=== PATIENT | female | born 1955 | race African-American/Black ===

== ENCOUNTER 2017-11-24 21:36 | Inpatient (IN) ==
[2017-11-24] MEDS ORDERED: Sod Chloride 0.9% Inj 1,000 ML IV.SIG SCH (22:45)
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
[2017-11-24 23:52] LABS: Baso % (Auto) 0.4 % (0.0-2.0); Eos # (Auto) 0.1 th/mm3 (0.0-0.4); Eos % (Auto) 0.9 % (0.0-4.0); Hematocrit 44.3 % (35.0-46.0); Hemoglobin 14.3 gm/dL (11.6-15.3); Lymph % (Auto) 26.2 % (9.0-44.0); Mean Corpuscular HGB Conc 32.3 % (32.0-36.0); Mean Corpuscular Hemoglobin 30.5 pg (27.0-34.0); Mean Corpuscular Volume 94.3 fL (80.0-100.0); Mean Platelet Volume 8.1 fL (7.0-11.0); Mono # (Auto) 0.3 th/mm3 (0.0-0.9); Mono % (Auto) 3.9 % (0.0-8.0); Neut # (Auto) 5.4 th/mm3 (1.8-7.7); Neut % (Auto) 68.6 % (16.0-70.0); Platelet Count 306 th/mm3 (150-450); Red Blood Count 4.69 mil/mm3 (4.00-5.30); Red Cell Distribution Width 14.1 % (11.6-17.2); White Blood Count 7.8 th/mm3 (4.0-11.0)
[2017-11-25 00:14] LABS: Bacteria,Urine Rare /hpf; Bilirubin,Urine Negative (Negative); Clarity,Urine Hazy (Clear); Color,Urine Straw (Yellw/Straw); Glucose,Urine (UA) 500 or Greater mg/dL (Negative); Leukocyte Esterase,Urine Large (Negative); Nitrite,Urine Negative (Negative); Specific Gravity,Urine 1.029 (1.002-1.035); Squamous Epithelial Cell,Urine 1 /hpf (0-5)
[2017-11-25 00:16] LABS: Amphetamine Screen,Urine Neg (Neg); Barbiturate Screen,Urine Neg (Neg); Cannabinoid Screen,Urine Neg (Neg); Cocaine Screen,Urine Neg (Neg)
[2017-11-25 00:24] LABS: Alanine Aminotransferase 18 U/L (10-53); Albumin 3.9 g/dL (3.4-5.0); Anion Gap 9 meq/L (5-15); Aspartate Aminotransferase 14 U/L (15-37); Blood Urea Nitrogen 29 mg/dL (7-18); Calcium 9.7 mg/dL (8.5-10.1); Carbon Dioxide 27.4 meq/L (21.0-32.0); Chloride 98 meq/L (98-107); Glomerular Filtration Rate 57 mL/min (>89); Sodium 134 meq/L (136-145)
[2017-11-25 00:26] LABS: Opiate Screen,Urine Neg (Neg)
[2017-11-25 00:26] LABS: Glucose,Random 466 mg/dL (74-106)
[2017-11-25 00:29] LABS: Alkaline Phosphatase 108 U/L (45-117); Total Protein 8.3 g/dL (6.4-8.2)
[2017-11-25] MEDS ORDERED: Lisinopril 10 MG Tablet PO ONE (13:27)
[2017-11-25] MEDS ORDERED: Aluminum/Magnesium/Simethacone Susp 30 ML UDC PO PRN (14:23)
[2017-11-25] MEDS ORDERED: Acetaminophen 325 MG Tablet PO PRN (14:23)
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
[2017-11-25] MEDS: Non-Formulary Drug (Metformin [Metformin] 1,000 MG) PO SCH (21:26)
[2017-11-25] MEDS: NOVOLOG U INSULIN SUBCUT SCH (22:15)
[2017-11-26 08:30] LABS: Anion Gap 8 meq/L (5-15); Blood Urea Nitrogen 27 mg/dL (7-18); Calcium 9.5 mg/dL (8.5-10.1); Chloride 107 meq/L (98-107); Chol/HDL Ratio 3.31 Ratio; Cholesterol 146 mg/dL (120-200); Glomerular Filtration Rate Greater Than 89 mL/min (>89); Glucose,Random 68 mg/dL (74-106); LDL Cholesterol,Calculated 86 mg/dL (0-99); Potassium 3.6 meq/L (3.5-5.1); Sodium 143 meq/L (136-145); Triglycerides 78 mg/dL (42-150)
[2017-11-26] MEDS: Lisinopril 10 MG Tablet PO SCH (08:44)
[2017-11-26] MEDS ORDERED: INSULIN DETEMIR SQ SCH (09:00)
[2017-11-26] MEDS ORDERED: [UNRECOGNIZED DRUG - OTHER] SQ SCH (09:00)
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
--- NOTE | 2017-11-26 11:05 | P.CONPSY ---
Provisional Diagnosis Admission Date: November 25, 2017 14:23 [place] I.: Adjustment disorder with mixed disturbances of emotion and conduct History of Present Illness Service: Psychiatry Primary Care Provider: UNKNOWN History of Present Illness: Patient is a 62-year-old Afro-E[place]ian woman, psychiatric history of dementia, who comes to the emergency department under a Johns act by the [facility]'s office dated 11/24/2017 at 09 100 p.m. that document reviewed essentially stating subject was not a physical with family members subject vitals were checked by medical personnel determined the subject he has high blood sugar subject has been diagnosed with blood sugar issues and he has been prescription medication which she has not taken her pill count and pill bottles per medical personnel having high blood sugar which causes subjects mental status to be altered subject refused to go the hospital for treatment. Consulted to me for second opinion. My evaluation the patient is calm, cooperative, pleasant. She reports feeling much better. The patient reports that she does not really know what is the reason she is here. The patient reports good mood, denies depression, denies suicidal enemas ideation, she denies visual and auditory hallucinations. She is oriented 3 at the moment. [facility] - History History Provided By: Patient, Medical Record, Law Enforcement - Medical History Medical History: Medical History (Last Reviewed 11/25/17 @ 17:09 by PHILLIP Hernández) Diabetes Hypertension - Tobacco History Second Hand Smoke Exposure: No Smoking Status: Never smoker - Alcohol History How Often Do You Have a Drink Containing Alcohol: Never - Substance Use History Substance History: No History of Abuse - Travel History Recent Travel in the [place] Within the Last 8 Weeks: No Recent Travel Out of the Country Within the Last 8 Weeks: No - Immunization History Tetanus Immunization: Unsure Hx Influenza Vaccine This Season: No Medications and Allergies Active Medications: Active Medications Acetaminophen (Tylenol) 650 mg PO Q4H PRN PRN Reason: Pain 1-5 or Temp >101F Al Hydrox/Mg Hydrox/Simethicone (Mag-Al Plus Susp Liq) 30 ml PO Q6H PRN PRN Reason: DYSPEPSIA Al Hydroxide/Mg Hydroxide (Milk Of Magnesia Liq) 30 ml PO Q12H PRN PRN Reason: Mild Constipation Sodium Chloride (Ns Inj) 1,000 mls @ 0 mls/hr IV.SIG BOLUS [facility] Last Infusion: 11/25/17 01:25 Dose: Infused Lisinopril (Prinivil) 10 mg PO DAILY [facility] Last Admin: 11/26/17 08:44 Dose: 10 mg Non-Formulary Medication (Levemir Flextouch U-100 Insuln) 20 unit SQ DAILY [facility] Non-Formulary Medication (Metformin [Metformin]) 1,000 mg PO BID [facility] Last Admin: 11/25/17 21:26 Dose: Not Given Non-Formulary Medication (Novolog Flexpen U-100 Insulin) 10 sc SUBCUT BID [facility] Last Admin: 11/25/17 22:15 Dose: Not Given Pravastatin Sodium (Pravachol) 40 mg PO [facility] Last Admin: 11/25/17 21:26 Dose: 40 mg Allergies Allergy/AdvReac Type Severity Reaction Status Date / Time No Known Allergies Allergy Verified 11/24/17 22:05 Home Medications Medication Instructions Recorded Confirmed Type Levemir FlexTouch U-100 Insuln 20 unit SUB-Q DAILY 11/24/17 11/24/17 History Novolog Flexpen U-100 Insulin 10 sc BID 11/24/17 11/24/17 History lisinopril 10 mg PO DAILY 11/24/17 11/24/17 History metformin 1,000 mg PO BID 11/24/17 11/24/17 History pravastatin 40 mg PO HS 11/24/17 11/24/17 History Exam Vital signs: Vital Signs 11/25/17 13:00 11/25/17 15:22 11/25/17 17:06 Temperature 98.3 F Pulse Rate 71 71 75 Respiratory Rate 17 16 Blood Pressure 197/90 H 184/88 H 146/71 H Pulse Oximetry 97 93 L 11/26/17 05:45 Temperature 98 F Pulse Rate 64 Respiratory Rate 16 Blood Pressure 122/60 Pulse Oximetry 94 L Intake & Output 11/25/17 11/26/17 11/26/17 18:59 06:59 18:59 Intake Total 0 / 0 Balance 0 / 0 Weight 67 kg Intake: Oral 0 / 0 Other: # Voids 1 Weight On Admission 67 kg Mental Status Examination Appearance: Appropriate, Well dressed/well groomed Consciousness: Alert Orientation: Person, Place, Situation Motor Activity: Normal gait Speech: Unremarkable Language: Adequate Fund of Knowledge: Adequate (Fair) Attention and Concentration: Adequate Memory: Impaired Mood: Appropriate, Anxious Affect: Other (Good range and intensity) Thought Process & Associations: Intact Thought Content: Appropriate Hallucination Type: None Delusion Type: None Suicidal Ideation: No Suicidal Plan: No Suicidal Intention: No Homicidal Ideation: No Homicidal Plan: No Homicidal Intention: No Insight: Fair Judgment: Impulsive Assessment and Plan - Assessment (1) Adjustment disorder with mixed disturbance of emotions and conduct Code(s): F43.25 - Adjustment disorder with mixed disturbance of emotions and conduct Status: Acute (2) Dementia with behavioral disturbance Code(s): F03.91 - Unspecified dementia with behavioral disturbance Status: Acute - Plan Plan: I have seen and examined this patient, reviewed documentation, I agree and concur with Dr. Bautista's assessment and plan. Justification for Continued Inpatient Stay: Continue admission Request Healthcare Surrogate/Guardian Advocate?: No
[2017-11-26] MEDS: NOVOLOG U INSULIN SUBCUT SCH (15:09)
[2017-11-26] MEDS: Non-Formulary Drug (Metformin [Metformin] 1,000 MG) PO SCH (15:09)
[2017-11-26 15:54] LABS: Hemoglobin A1c 11.6 % (4.3-6.0)
[2017-11-26] MEDS ORDERED: Dextrose 50% in Water 50 ML Vial IV.PUSH PRN (20:38)
[2017-11-26] MEDS: Insulin NovoLOG Aspart Correctional Sugar Inj SQ SCH (22:11)
[2017-11-27] MEDS: Insulin NovoLOG Aspart Correctional Sugar Inj SQ SCH ×3 (09:01→16:40)
[2017-11-27] MEDS: Lisinopril 10 MG Tablet PO SCH (09:02)
[2017-11-27] MEDS: Insulin Detemir Inj 1,000 UNIT/10 ML Vial SQ SCH (09:02)
--- NOTE | 2017-11-27 11:57 | P.PNPSY ---
Subjective Remarks: Patient seen in day room with nurse Pace, chart reviewed, patient compliant medications. Patient continues calm pleasant with me continues well oriented denying suicidality homicidality voices or visions. There is still some her depression and sadness with her when referring to the relationship with her son and [id number] and they are living together. There are still some concern about the entire situation. For now continue treatment we are awaiting neuropsychology report Review of Systems All other systems reviewed negative except as stated in HPI Mental Status Examination Appearance: Appropriate, Well dressed/well groomed Consciousness: Alert Orientation: Person, Place, Situation Motor Activity: Normal gait Speech: Unremarkable Language: Adequate Fund of Knowledge: Adequate (Fair) Attention and Concentration: Adequate Memory: Impaired Mood: Appropriate, Anxious Affect: Other (Good range and intensity) Thought Process & Associations: Intact Thought Content: Appropriate Hallucination Type: None Delusion Type: None Suicidal Ideation: No Suicidal Plan: No Suicidal Intention: No Homicidal Ideation: No Homicidal Plan: No Homicidal Intention: No Insight: Fair Judgment: Impulsive Assessment and Plan - Assessment (1) Adjustment disorder with mixed disturbance of emotions and conduct Code(s): F43.25 - Adjustment disorder with mixed disturbance of emotions and conduct Status: Acute (2) Dementia with behavioral disturbance Code(s): F03.91 - Unspecified dementia with behavioral disturbance Status: Acute - Plan Plan: Patient continues somewhat depressed, somewhat functioning relationship with her children. For now continue treatment Justification for Continued Inpatient Stay: At this time patient would decompensate a place to a lower level of care Discharge Planning: To be determined Request Healthcare Surrogate/Guardian Advocate?: No
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
[2017-11-27] MEDS ORDERED: Insulin Detemir Inj 1,000 UNIT/10 ML Vial SQ SCH (21:00)
[2017-11-28] MEDS: Insulin NovoLOG Aspart Correctional Sugar Inj SQ SCH ×5 (04:08→21:00)
[2017-11-28] MEDS: Lisinopril 10 MG Tablet PO SCH (08:01)
[2017-11-28] MEDS: Insulin Detemir Inj 1,000 UNIT/10 ML Vial SQ SCH (08:02)
[2017-11-28] MEDS ORDERED: Insulin Detemir Inj 1,000 UNIT/10 ML Vial SQ SCH (11:58)
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
--- NOTE | 2017-11-28 16:26 | P.PNPSY ---
Subjective Remarks: Patient was seen and case discussed with nursing. Patient is perseverative on discharge. She does not poor insight into her admission. So far, she is behaving well on the unit and has not had any outbursts. No aggressive behavior noted. She denies suicidal or homicidal ideation intent or plan Mental Status Examination Appearance: Appropriate, Well dressed/well groomed Consciousness: Alert Orientation: Person, Place, Situation Motor Activity: Normal gait Speech: Unremarkable Language: Adequate Fund of Knowledge: Adequate (Fair) Attention and Concentration: Adequate Memory: Impaired Mood: Appropriate, Anxious Affect: Other (Good range and intensity) Thought Process & Associations: Intact Thought Content: Appropriate Hallucination Type: None Delusion Type: None Suicidal Ideation: No Suicidal Plan: No Suicidal Intention: No Homicidal Ideation: No Homicidal Plan: No Homicidal Intention: No Insight: Fair Judgment: Impulsive Assessment and Plan - Assessment (1) Adjustment disorder with mixed disturbance of emotions and conduct Code(s): F43.25 - Adjustment disorder with mixed disturbance of emotions and conduct Status: Acute (2) Dementia with behavioral disturbance Code(s): F03.91 - Unspecified dementia with behavioral disturbance Status: Acute - Plan Plan: Continue current treatment plan Justification for Continued Inpatient Stay: Patient would decompensate in a less restrictive setting Request Healthcare Surrogate/Guardian Advocate?: No
[2017-11-29] MEDS: Insulin NovoLOG Aspart Correctional Sugar Inj SQ SCH ×4 (09:56→21:00)
[2017-11-29] MEDS: Insulin Detemir Inj 1,000 UNIT/10 ML Vial SQ SCH ×2 (10:02→21:50)
[2017-11-29] MEDS: Lisinopril 10 MG Tablet PO SCH (10:03)
--- NOTE | 2017-11-29 12:49 | P.PNPSY ---
Subjective Remarks: Patient was seen and case discussed with nursing. Today, patient is minimally engaged during the interview. Nonspontaneous speech. Patient says she wants to leave. Her blood sugar remains labile and was at 312. She is surprised to learn today she is on the psych olivares. Has not had any visitors or phone calls today. Compliant with medication per nursing Mental Status Examination Appearance: Appropriate, Well dressed/well groomed Consciousness: Alert Orientation: Person, Place, Situation Motor Activity: Normal gait Speech: Unremarkable Language: Adequate Fund of Knowledge: Adequate (Fair) Attention and Concentration: Adequate Memory: Impaired Mood: Appropriate, Anxious Affect: Other (Good range and intensity) Thought Process & Associations: Intact Thought Content: Preoccupations Hallucination Type: None Delusion Type: None Suicidal Ideation: No Suicidal Plan: No Suicidal Intention: No Homicidal Ideation: No Homicidal Plan: No Homicidal Intention: No Insight: Fair Judgment: Impulsive Assessment and Plan - Assessment (1) Adjustment disorder with mixed disturbance of emotions and conduct Code(s): F43.25 - Adjustment disorder with mixed disturbance of emotions and conduct Status: Acute (2) Dementia with behavioral disturbance Code(s): F03.91 - Unspecified dementia with behavioral disturbance Status: Acute - Plan Plan: Continue current treatment plan Justification for Continued Inpatient Stay: Patient would decompensate in a less restrictive setting Request Healthcare Surrogate/Guardian Advocate?: No
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
[2017-11-30] MEDS: Insulin NovoLOG Aspart Correctional Sugar Inj SQ SCH ×4 (07:26→22:38)
[2017-11-30] MEDS: Insulin Detemir Inj 1,000 UNIT/10 ML Vial SQ SCH ×2 (09:16→21:36)
[2017-11-30] MEDS: Lisinopril 10 MG Tablet PO SCH (09:16)
--- NOTE | 2017-11-30 10:29 | P.PNPSY ---
Subjective Remarks: Patient seen in day room with nurse Chikis, chart reviewed, patient compliant medication. Medicine service notes and management reviewed and appreciated. Patient sitting quietly and now with floor staff. She is alert continues mildly confused but no behavioral problems. For now continue treatment Review of Systems All other systems reviewed negative except as stated in HPI Mental Status Examination Appearance: Appropriate, Well dressed/well groomed Consciousness: Alert Orientation: Person, Place, Situation Motor Activity: Normal gait Speech: Unremarkable Language: Adequate Fund of Knowledge: Adequate (Fair) Attention and Concentration: Adequate Memory: Impaired Mood: Appropriate, Anxious Affect: Other (Good range and intensity) Thought Process & Associations: Intact Thought Content: Preoccupations Hallucination Type: None Delusion Type: None Suicidal Ideation: No Suicidal Plan: No Suicidal Intention: No Homicidal Ideation: No Homicidal Plan: No Homicidal Intention: No Insight: Fair Judgment: Impulsive Assessment and Plan - Assessment (1) Adjustment disorder with mixed disturbance of emotions and conduct Code(s): F43.25 - Adjustment disorder with mixed disturbance of emotions and conduct Status: Acute (2) Dementia with behavioral disturbance Code(s): F03.91 - Unspecified dementia with behavioral disturbance Status: Acute - Plan Plan: Patient calm cooperative no acute distress no behavioral issues. However she states she has had no contact with her family. In the it is upsetting her. For now continue treatment Justification for Continued Inpatient Stay: At this time patient would decompensate if placed in a lower level of care Discharge Planning: To be determined Request Healthcare Surrogate/Guardian Advocate?: No
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
--- NOTE | 2017-11-30 12:11 | P.DIET ---
Nutritional Evaluation Type of nutrition evaluation: initial [place] [facility] [place] [facility] [place] Education Subjective Subjective Comments: Pt visited in the dayroom before lunch today. Pt provided w/diet education for 1800ADA Consistent CHO diet. Objective - Diagnosis Dementia w/Behavioral Disturbances - Objective [place] body weight: 65.9 kg % IBW: 102 Body Weight Used for Calculations: Actual (67 kg) Energy Needs - Lower Range (kCal/kg): 25 Energy Needs - Upper Range (kCal/kg): 30 Lower Limit kCal/kg (kCals): 1,675 Upper Limit kCal/kg (kCals): 2,010 Lower Limit Protein Factor (Grams per Kg): 1.0 Upper Limit Protein Factor (Grams per Kg): 1.3 Lower Protein Needs (Protein): 67 Upper Protein Needs (Protein): 87 Dietitian Reviewed in Medical Record: Current diet, Curent medications, Intake & Output, Labs, Medical history Diet Order: Cardiac 1800ADA Oral Diet Intake Amount: Good 75-90% Objective Comments: PMH: DM, HTN Glucose 532, POC glucose 319, A1C 11.6 Meds Include: Novolog, Levemir, Glucophage, Pravachol, Lisinopril Assessment Assessment: Pt provided w/diet education for Cardiac 1800ADA diet and reading food labels. Pt's questions answered to her satisfaction. Pt was receptive to all education provided. Plan to follow-up for additional questions as needed. Recommendations: 1. Pt provided w/diet education for Cardiac 1800ADA diet 2. Pt's questions answered to her satisfaction 3. Pt receptive to all education provided 4. Plan to follow-up for additional questions as needed
[2017-12-01] MEDS: Insulin NovoLOG Aspart Correctional Sugar Inj SQ SCH ×3 (09:52→16:12)
[2017-12-01] MEDS: Insulin Detemir Inj 1,000 UNIT/10 ML Vial SQ SCH (09:58)
[2017-12-01] MEDS: Lisinopril 10 MG Tablet PO SCH ×2 (09:58→20:26)
--- NOTE | 2017-12-01 11:25 | P.PNPSY ---
Subjective Remarks: Patient seen in day room with nurse Chikis, patient alert somewhat confused but overall calm and pleasant. We asked her about discharge plans she initially thought about independent living. Denies suggestive perhaps a family home living type situation she had to consider that. She denies suicidality homicidality voice or visions. For now continue treatment Review of Systems All other systems reviewed negative except as stated in HPI Mental Status Examination Appearance: Appropriate, Well dressed/well groomed Consciousness: Alert Orientation: Person, Place, Situation Motor Activity: Normal gait Speech: Unremarkable Language: Adequate Fund of Knowledge: Adequate (Fair) Attention and Concentration: Adequate Memory: Impaired Mood: Appropriate, Anxious Affect: Other (Good range and intensity) Thought Process & Associations: Intact Thought Content: Preoccupations Hallucination Type: None Delusion Type: None Suicidal Ideation: No Suicidal Plan: No Suicidal Intention: No Homicidal Ideation: No Homicidal Plan: No Homicidal Intention: No Insight: Fair Judgment: Impulsive Assessment and Plan - Assessment (1) Adjustment disorder with mixed disturbance of emotions and conduct Code(s): F43.25 - Adjustment disorder with mixed disturbance of emotions and conduct Status: Acute (2) Dementia with behavioral disturbance Code(s): F03.91 - Unspecified dementia with behavioral disturbance Status: Acute - Plan Plan: Patient overall calm pleasant no behavior problems she is somewhat confused but she is quite appropriate with his responses. For now continue treatment placement may become somewhat problematic Justification for Continued Inpatient Stay: At this time patient would decompensate if not placed in an appropriate level of care Discharge Planning: To be determined Request Healthcare Surrogate/Guardian Advocate?: No
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
[2017-12-02] MEDS: Insulin NovoLOG Aspart Correctional Sugar Inj SQ SCH ×5 (00:10→22:21)
[2017-12-02] MEDS: Lisinopril 10 MG Tablet PO SCH ×2 (08:29→20:49)
[2017-12-02] MEDS: Insulin Detemir Inj 1,000 UNIT/10 ML Vial SQ SCH (08:52)
--- NOTE | 2017-12-02 12:21 | P.PNPSY ---
Subjective Remarks: Patient seen in day room with floor staff, patient calm cooperative pleasant with us as well as some mild diffuse confusion she is overall goal oriented and appropriate. Patient denies suicidality homicidality voice or visions. At this time patient longer meets Johns criteria. She is going to sign voluntary work with us to continue monitoring medication and find appropriate placement thus I will lift Johns act allow her to sign voluntary Review of Systems All other systems reviewed negative except as stated in HPI Mental Status Examination Appearance: Appropriate, Well dressed/well groomed Consciousness: Alert Orientation: Person, Place, Situation Motor Activity: Normal gait Speech: Unremarkable Language: Adequate Fund of Knowledge: Adequate (Fair) Attention and Concentration: Adequate Memory: Impaired Mood: Appropriate, Anxious Affect: Other (Good range and intensity) Thought Process & Associations: Intact Thought Content: Preoccupations Hallucination Type: None Delusion Type: None Suicidal Ideation: No Suicidal Plan: No Suicidal Intention: No Homicidal Ideation: No Homicidal Plan: No Homicidal Intention: No Insight: Fair Judgment: Impulsive Assessment and Plan - Assessment (1) Adjustment disorder with mixed disturbance of emotions and conduct Code(s): F43.25 - Adjustment disorder with mixed disturbance of emotions and conduct Status: Acute (2) Dementia with behavioral disturbance Code(s): F03.91 - Unspecified dementia with behavioral disturbance Status: Acute - Plan Plan: Patient continues calm cooperative, continues to work with medicine service to help stabilize her diabetes. Lift Nat act allow patient to sign voluntary Justification for Continued Inpatient Stay: At this time patient would decompensate a place to the lower level of care Discharge Planning: To be determined Request Healthcare Surrogate/Guardian Advocate?: No
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
[2017-12-03] MEDS: Insulin NovoLOG Aspart Correctional Sugar Inj SQ SCH ×4 (08:09→21:18)
[2017-12-03] MEDS: Lisinopril 10 MG Tablet PO SCH ×2 (08:37→20:23)
[2017-12-03] MEDS: Insulin Detemir Inj 1,000 UNIT/10 ML Vial SQ SCH (08:41)
[2017-12-03 08:52] LABS: Anion Gap 8 meq/L (5-15); Blood Urea Nitrogen 20 mg/dL (7-18); Calcium 9.6 mg/dL (8.5-10.1); Carbon Dioxide 29.3 meq/L (21.0-32.0); Chloride 103 meq/L (98-107); Glomerular Filtration Rate Greater Than 89 mL/min (>89); Glucose,Random 148 mg/dL (74-106); Potassium 4.4 meq/L (3.5-5.1); Sodium 140 meq/L (136-145)
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
--- NOTE | 2017-12-03 11:20 | P.TTN ---
- Patient Problems Problems: 1. Discharge planning 2. Medication compliance 3. Knowledge deficit 4. Lack of coping skills - Progress Toward Goals Provider Present: Dr. Rain Bautista Provider Input: Patient is in need of placement Psychiatric Counselors Present: Other Psychiatric Therapist Input: Patient is cooperative, confused at times, engages with others, has limited insight, and remains in need of placement Group Spec/RT/OT/WOO Present: MECHELLE Ortega Group Spec/RT/OT/WOO Input: Patient does not attend groups - Discharge Plan Patient is in need of placement. She does not wish to return home with son and would like to live independently. Possible placement with [facility]. - Documentation Teaching Recipient: Patient
--- NOTE | 2017-12-03 12:54 | P.PNPSY ---
Subjective Remarks: Patient seen in her room with nurse Heather, chart reviewed, patient compliant with medications, patient showing no behavioral problems, although she is mildly confused she is overall oriented calm and appropriate continues to agree to placement in a snf type situation she continues to deny suicidality and voices Review of Systems All other systems reviewed negative except as stated in HPI Mental Status Examination Appearance: Appropriate, Well dressed/well groomed Consciousness: Alert Orientation: Person, Place, Situation Motor Activity: Normal gait Speech: Unremarkable Language: Adequate Fund of Knowledge: Adequate (Fair) Attention and Concentration: Adequate Memory: Impaired Mood: Appropriate, Anxious Affect: Other (Good range and intensity) Thought Process & Associations: Intact Thought Content: Preoccupations Hallucination Type: None Delusion Type: None Suicidal Ideation: No Suicidal Plan: No Suicidal Intention: No Homicidal Ideation: No Homicidal Plan: No Homicidal Intention: No Insight: Fair Judgment: Impulsive Assessment and Plan - Assessment (1) Adjustment disorder with mixed disturbance of emotions and conduct Code(s): F43.25 - Adjustment disorder with mixed disturbance of emotions and conduct Status: Acute (2) Dementia with behavioral disturbance Code(s): F03.91 - Unspecified dementia with behavioral disturbance Status: Acute - Plan Plan: Patient continues to be no behavioral problem, she is mildly confused but overall calm cooperative willing to accept placement at this time. For now continue treatment Justification for Continued Inpatient Stay: At this time patient would decompensate if not placed in an appropriate level of care Discharge Planning: To be determined Request Healthcare Surrogate/Guardian Advocate?: No
[2017-12-04] MEDS: Insulin NovoLOG Aspart Correctional Sugar Inj SQ SCH ×4 (08:15→20:28)
[2017-12-04] MEDS: Lisinopril 10 MG Tablet PO SCH ×2 (08:43→20:26)
[2017-12-04] MEDS: Insulin Detemir Inj 1,000 UNIT/10 ML Vial SQ SCH (09:00)
--- NOTE | 2017-12-04 11:17 | P.PNPSY ---
Subjective Remarks: Patient seen and maurer with nurse Wendy, chart reviewed, patient compliant medication. Patient continues calm and pleasant coping with the placement process. She states to look for medication from her family. She continues willing to go into a family care time: Review of Systems All other systems reviewed negative except as stated in HPI Mental Status Examination Appearance: Appropriate, Well dressed/well groomed Consciousness: Alert Orientation: Person, Place, Situation Motor Activity: Normal gait Speech: Unremarkable Language: Adequate Fund of Knowledge: Adequate (Fair) Attention and Concentration: Adequate Memory: Impaired Mood: Appropriate, Anxious Affect: Other (Good range and intensity) Thought Process & Associations: Intact Thought Content: Preoccupations Hallucination Type: None Delusion Type: None Suicidal Ideation: No Suicidal Plan: No Suicidal Intention: No Homicidal Ideation: No Homicidal Plan: No Homicidal Intention: No Insight: Fair Judgment: Impulsive Assessment and Plan - Assessment (1) Adjustment disorder with mixed disturbance of emotions and conduct Code(s): F43.25 - Adjustment disorder with mixed disturbance of emotions and conduct Status: Acute (2) Dementia with behavioral disturbance Code(s): F03.91 - Unspecified dementia with behavioral disturbance Status: Acute - Plan Plan: Patient calm cooperative, no behavior problems, compliant medications. For now continue treatment Justification for Continued Inpatient Stay: At this time patient would decompensate if not placed in an appropriate level of care Discharge Planning: To be determined Request Healthcare Surrogate/Guardian Advocate?: No
--- NOTE | 2017-12-04 18:44 | XR ---
EXAM DATE: 12/04/2017 6:40 PM EDT AGE/SEX: 62 years / Female INDICATIONS: Pelvic pain, fall. CLINICAL DATA: This is the patient's initial encounter. Patient reports that signs and symptoms have been present for 1 day and indicates a pain score of 5/10. MEDICAL/SURGICAL HISTORY: None. None. COMPARISON: No prior exams available for comparison. FINDINGS: There is no acute fracture or dislocation of the bony pelvis. Moderate osteoarthritis is noted involv ing the hip joints bilaterally. Vascular stents are noted within the expected region of the common il iac arteries bilaterally as well as within the superficial femoral arteries bilaterally. CONCLUSION: 1. No acute fracture or dislocation. 2. Moderate osteoarthritis involving the hips bilaterally. Electronically signed by: Charles Sherman MD 12/04/2017 6:43 PM EDT
[2017-12-05] MEDS: Insulin NovoLOG Aspart Correctional Sugar Inj SQ SCH ×3 (07:38→16:12)
[2017-12-05] MEDS: Lisinopril 10 MG Tablet PO SCH ×2 (09:52→20:42)
[2017-12-05] MEDS: Insulin Detemir Inj 1,000 UNIT/10 ML Vial SQ SCH (09:52)
--- NOTE | 2017-12-05 19:00 | P.PNPSY ---
Subjective Remarks: Reviewed electronic medical records and discussed case with staff. Follow-up was conducted in the day room with REBECCA Fisher present. Patient states that she slept well and her appetite is been good. She denies any depression. Her mood is good her affect is euthymic. Mental Status Examination Appearance: Appropriate, Well dressed/well groomed Consciousness: Alert Orientation: Person, Place, Situation Motor Activity: Normal gait Speech: Unremarkable Language: Adequate Fund of Knowledge: Adequate (Fair) Attention and Concentration: Adequate Memory: Impaired Mood: Appropriate, Anxious Affect: Other (Good range and intensity) Thought Process & Associations: Intact Thought Content: Preoccupations Hallucination Type: None Delusion Type: None Suicidal Ideation: No Suicidal Plan: No Suicidal Intention: No Homicidal Ideation: No Homicidal Plan: No Homicidal Intention: No Insight: Fair Judgment: Impulsive Assessment and Plan - Assessment (1) Dementia with behavioral disturbance Code(s): F03.91 - Unspecified dementia with behavioral disturbance Status: Acute - Plan Plan: Patient will be reevaluated Thursday by the attending psychiatrist. Continue with current treatment plan. Justification for Continued Inpatient Stay: Moving this patient to a less restrictive environment would likely result in decompensation. Request Healthcare Surrogate/Guardian Advocate?: No
[2017-12-06] MEDS: Insulin NovoLOG Aspart Correctional Sugar Inj SQ SCH ×5 (04:28→21:24)
--- NOTE | 2017-12-06 09:17 | P.PNPSY ---
Subjective Chief Complaint: Adjustment Disorder with mixed disturbances in emotions and conduct Remarks: Reviewed electronic medical records and discussed case with staff. Follow up with patient and nurse, Chikis FERNANDEZ. Patient is in day room eating breakfast. Sleeping and eating well. Discharge focused. No behavioral concerns at this time. Quiet and keeps to herself. Review of Systems All other systems reviewed negative except as stated in HPI Mental Status Examination Appearance: Appropriate, Well dressed/well groomed Consciousness: Alert Orientation: Person, Place, Situation Motor Activity: Normal gait Speech: Unremarkable Language: Adequate Fund of Knowledge: Adequate (Fair) Attention and Concentration: Adequate Memory: Impaired Mood: Appropriate, Anxious Affect: Other (Good range and intensity) Thought Process & Associations: Intact Thought Content: Preoccupations (discharge focused ) Hallucination Type: None Delusion Type: None Suicidal Ideation: No Suicidal Plan: No Suicidal Intention: No Homicidal Ideation: No Homicidal Plan: No Homicidal Intention: No Insight: Fair Judgment: Impulsive Assessment and Plan - Assessment (1) Adjustment disorder with mixed disturbance of emotions and conduct Code(s): F43.25 - Adjustment disorder with mixed disturbance of emotions and conduct Status: Acute - Plan Plan: Patient will be reevaluated Thursday by the attending psychiatrist. Continue with current treatment plan. Justification for Continued Inpatient Stay: Moving patient to a less restrictive environment may result in her decompensation. Request Healthcare Surrogate/Guardian Advocate?: No
[2017-12-06] MEDS: Insulin Detemir Inj 1,000 UNIT/10 ML Vial SQ SCH (09:50)
[2017-12-06] MEDS: Lisinopril 10 MG Tablet PO SCH ×2 (09:50→20:30)
[2017-12-07] MEDS: Insulin NovoLOG Aspart Correctional Sugar Inj SQ SCH ×4 (08:03→22:40)
[2017-12-07] MEDS: Lisinopril 10 MG Tablet PO SCH ×2 (08:24→20:38)
[2017-12-07] MEDS: Insulin Detemir Inj 1,000 UNIT/10 ML Vial SQ SCH (08:25)
--- NOTE | 2017-12-07 11:25 | P.PNPSY ---
Subjective Chief Complaint: Adjustment Disorder with mixed disturbances in emotions and conduct Remarks: Patient seen in day room with nurse Dayanna, chart reviewed, patient compliant medication. Patient is showing some mild increased frustration with delays and placement. She continues to denies suicidality homicidality voices or visions. Review of Systems All other systems reviewed negative except as stated in HPI Mental Status Examination Appearance: Appropriate, Well dressed/well groomed Consciousness: Alert Orientation: Person, Place, Situation Motor Activity: Normal gait Speech: Unremarkable Language: Adequate Fund of Knowledge: Adequate (Fair) Attention and Concentration: Adequate Memory: Impaired Mood: Appropriate, Anxious Affect: Other (Good range and intensity) Thought Process & Associations: Intact Thought Content: Preoccupations (discharge focused ) Hallucination Type: None Delusion Type: None Suicidal Ideation: No Suicidal Plan: No Suicidal Intention: No Homicidal Ideation: No Homicidal Plan: No Homicidal Intention: No Insight: Fair Judgment: Impulsive Assessment and Plan - Assessment (1) Adjustment disorder with mixed disturbance of emotions and conduct Code(s): F43.25 - Adjustment disorder with mixed disturbance of emotions and conduct Status: Acute (2) Dementia with behavioral disturbance Code(s): F03.91 - Unspecified dementia with behavioral disturbance Status: Acute - Plan Plan: Patient overall low behavioral problems, she is coping well with delays and placement. Acknowledges some mild memory issues overall responsive and appropriate Justification for Continued Inpatient Stay: At this time patient would decompensate if not placed in an appropriate level of care Discharge Planning: To be determined Request Healthcare Surrogate/Guardian Advocate?: No
[2017-12-08 06:46] VITALS: RESP 16
[2017-12-08] MEDS: Insulin Detemir Inj 1,000 UNIT/10 ML Vial SQ SCH (08:16)
[2017-12-08] MEDS: Lisinopril 10 MG Tablet PO SCH ×2 (08:17→20:38)
[2017-12-08] MEDS: Insulin NovoLOG Aspart Correctional Sugar Inj SQ SCH ×4 (08:17→21:31)
--- NOTE | 2017-12-08 12:13 | P.PNPSY ---
Subjective Chief Complaint: Adjustment Disorder with mixed disturbances in emotions and conduct Remarks: Patient seen in day room with nurse Dayanna, chart reviewed, patient compliant medication. Patient continues to show good coping skills related to placement issues and family issues. She has no behavior problem here. Denies suicidality homicidality voice or visions for now continue treatment Review of Systems All other systems reviewed negative except as stated in HPI Mental Status Examination Appearance: Appropriate, Well dressed/well groomed Consciousness: Alert Orientation: Person, Place, Situation Motor Activity: Normal gait Speech: Unremarkable Language: Adequate Fund of Knowledge: Adequate (Fair) Attention and Concentration: Adequate Memory: Impaired Mood: Appropriate, Anxious Affect: Other (Good range and intensity) Thought Process & Associations: Intact Thought Content: Preoccupations (discharge focused ) Hallucination Type: None Delusion Type: None Suicidal Ideation: No Suicidal Plan: No Suicidal Intention: No Homicidal Ideation: No Homicidal Plan: No Homicidal Intention: No Insight: Fair Judgment: Impulsive Assessment and Plan - Assessment (1) Adjustment disorder with mixed disturbance of emotions and conduct Code(s): F43.25 - Adjustment disorder with mixed disturbance of emotions and conduct Status: Acute (2) Dementia with behavioral disturbance Code(s): F03.91 - Unspecified dementia with behavioral disturbance Status: Acute - Plan Plan: Patient remains mildly confused but overall calm cooperative and no behavior problems. Continue to work on placement issues Justification for Continued Inpatient Stay: At this time patient would decompensate a place to a lower level of care Discharge Planning: To be determined Request Healthcare Surrogate/Guardian Advocate?: No (2) Dementia with behavioral disturbance Qualifiers: Dementia type: Alzheimer's disease Alzheimer's disease onset: other onset Qualified Code(s): G30.8 - Other Alzheimer's disease; F02.81 - Dementia in other diseases classified elsewhere with behavioral disturbance
[2017-12-09 06:14] VITALS: BP 139/71; PULSE 74; TEMP 98.3; O2SAT 98
[2017-12-09] MEDS: Lisinopril 10 MG Tablet PO SCH (09:06)
[2017-12-09] MEDS: Insulin Detemir Inj 1,000 UNIT/10 ML Vial SQ SCH (09:07)
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
== END 2017-12-09 17:00 ==
LOC: NEDAMB 21:36 → NEDA 11-25 14:23 → H250 11-25 16:12
PROVIDERS: ADMIT Psychiatry & Neurology Psychiatry; ATTEND Psychiatry & Neurology Psychiatry